=== PATIENT | male | born 1965 | race Caucasian/White ===

== ENCOUNTER 2023-09-27 10:49 | Emergency (ER) | payer OTHER ==
--- NOTE | 2023-09-27 11:23 | RAD REPORT ---
EXAM DESCRIPTION: [facility] Single View09/27/2023 11:12 am CLINICAL HISTORY: Congestion;Cough COMPARISON: No comparisons TECHNIQUE: Portable AP view of the chest. FINDINGS: The lungs are clear. No pneumothorax or effusion. The cardiomediastinal contours are unre markable. IMPRESSION: No acute cardiopulmonary process.
[2023-09-27 11:33] LABS: SARS-CoV-2 Antigen Rapid Res Negative (Negative)
--- NOTE | 2023-09-27 11:43 | ER ---
Nurse's Notes [facility] Name: Victor Hugo Ellis Age: 58 yrs Sex: Male : 1965 Arrival Date: 09/27/2023 Time: 10:49 Bed IW1 Private MD: Diagnosis: Acute upper respiratory infection, unspecified Presentation: 09/27 10:57 Chief complaint: Patient states: "Last night I started having cough, congestion, mb9 nausea, cough, sore throat, body aches, and chest pain from a previous fall 2 weeks ago.". Coronavirus screen: Vaccine status: Patient reports receiving the 2nd dose of the covid vaccine. Ebola Screen: No symptoms or risks identified at this time. Initial Sepsis Screen: Does the patient meet any 2 criteria? No. Patient's initial sepsis screen is negative. Does the patient have a suspected source of infection? No. Patient's initial sepsis screen is negative. Risk Assessment: Do you want to hurt yourself or someone else? Patient reports no desire to harm self or others. Onset of symptoms was September 27, 2023. 10:57 Method Of Arrival: Ambulatory mb9 10:57 Acuity: GLENYS 4 mb9 Triage Assessment: 10:59 General: Appears in no apparent distress. Behavior is calm, cooperative. Pain: mb9 Complains of pain in entire body. EENT: Throat is reddened. EENT: Reports nasal congestion. Neuro: Arriaza Agitation-Sedation Scale (RASS): 0 - Alert and Calm Level of Consciousness is awake, alert, obeys commands, Oriented to person, place, time, situation, Appropriate for age. Cardiovascular: Patient's skin is warm and dry. Respiratory: Reports cough that is Airway is patent Respiratory effort is even, unlabored, Respiratory pattern is regular, symmetrical. Respiratory: Reports. GI: Reports nausea. : No signs and/or symptoms were reported regarding the genitourinary system. Derm: Skin is pink, warm \\T\\ dry. Historical: - Allergies: 10:58 PENICILLINS; mb9 - Home Meds: 10:58 None [Active]; mb9 - PMHx: 10:58 None; mb9 - PSHx: 10:58 None; mb9 - Immunization history:: Adult Immunizations up to date. - Social history:: Smoking status: Patient denies any tobacco usage or history of. Screenin:39 [facility] ED Fall Risk Assessment (Adult) History of falling in the last 3 months, mb9 including since admission No falls in past 3 months (0 pts) Confusion or Disorientation No (0 pts) Intoxicated or Sedated No (0 pts) Impaired Gait No (0 pts) Mobility Assist Device Used No (0 pt) Altered Elimination No (0 pt) Score/Fall Risk Level 0 - 2 = Low Risk Oriented to surroundings, Maintained a safe environment, Educated pt \\T\\ family on fall prevention, incl call for assistance when getting out of bed. Abuse screen: Denies threats or abuse. Nutritional screening: No deficits noted. Tuberculosis screening: No symptoms or risk factors identified. Assessment: 11:11 Reassessment: see triage assessment. mb9 11:39 Reassessment: Patient appears in no apparent distress at this time. No changes from mb9 previously documented assessment. Patient and/or family updated on plan of care and expected duration. Pain level reassessed. Patient is alert, oriented x 3, equal unlabored respirations, skin warm/dry/pink. Vital Signs: 10:57 BP 145 / 90; Pulse 67; Resp 18; Temp 97.7; Pulse Ox 98% on R/A; Weight 104.33 kg; mb9 Height 6 ft. 3 in. ; Pain 4/10; 10:57 Body Mass Index 28.75 (104.33 kg, 190.5 cm) mb9 10:57 Pain Scale: Adult mb9 ED Course: 10:52 Patient arrived in ED. im 10:57 Hellen Jansen MD is Attending Physician. sp3 10:58 Triage completed. mb9 10:59 Arm band placed on. mb9 11:01 Strep Sent. la1 11:01 Flu Sent. la1 11:01 SARS RAPID Sent. la1 11:04 Strep Sent. mb9 11:04 Flu Sent. mb9 11:04 SARS RAPID Sent. mb9 11:11 Sharyn Figueredo RN is Primary Nurse. mb9 11:14 CXR XRAY In Process Unspecified. EDMS 11:39 Sharyn Figueredo RN is Primary Nurse. mb9 11:39 Patient has correct armband on for positive identification. Client placed on continuous mb9 cardiac and pulse oximetry monitoring. NIBP monitoring applied. 11:39 No provider procedures requiring assistance completed. Patient did not have IV access mb9 during this emergency room visit. Patient maintains SpO2 saturation greater than 95% on room air. Administered Medications: No medications were administered Medication: 11:11 VIS not applicable for this client. mb9 Outcome: 11:42 Discharge ordered by . sp3 11:45 Discharged to home ambulatory, mb9 11:45 Condition: stable 11:45 Discharge instructions given to patient, Instructed on discharge instructions, follow up and referral plans. Demonstrated understanding of instructions, follow-up care, 11:45 Patient left the ED. mb9 Signatures: Dispatcher [employer] EDMS Nichole Dillon Lee, DEPARTMENT EDITOR-C DEPARTMENT EDITOR-Cla1 Hellen Jansen MD MD sp3 Sharyn Figueredo RN RN mb9 Jo Brewster Corrections: (The following items were deleted from the chart) 11:31 11:13 20 gauge to left AC placed by Ana Plata with blood sent to the lab. bd ll1
--- NOTE | 2023-09-27 11:43 | EDPHYS ---
Physician Documentation [facility] Name: Victor Hugo Ellis Age: 58 yrs Sex: Male : 1965 Arrival Date: 09/27/2023 Time: 10:49 Bed IW1 Private MD: ED Physician Hellen Jansen HPI: 09/27 11:39 This 58 yrs old Male presents to ER via Ambulatory with complaints of Congestion, COVID sp3 Symptoms, Flu Symptoms. 11:39 58-year-old male with upper respiratory symptoms, sinus drainage, cough, congestion, sp3 body aches, subjective fever, who presents to the ED today after 3 days of symptoms. Patient states he is "here with a group and wanted to make sure he was not sick". He denies headache, neck pain, chest pain or shortness of breath, abdominal pain, vomiting, diarrhea, syncope, near syncope, rash, known sick contacts, any other signs or symptoms on ROS at this time. He does endorse nausea.. Historical: - Allergies: 10:58 PENICILLINS; mb9 - Home Meds: 10:58 None [Active]; mb9 - PMHx: 10:58 None; mb9 - PSHx: 10:58 None; mb9 - Immunization history:: Adult Immunizations up to date. - Social history:: Smoking status: Patient denies any tobacco usage or history of. ROS: 11:39 Constitutional: Negative for fever, chills, and weight loss, Eyes: Negative for injury, sp3 pain, redness, and discharge, ENT: Negative for injury, pain, and discharge, Neck: Negative for injury, pain, and swelling, Cardiovascular: Negative for chest pain, palpitations, and edema, Abdomen/GI: Negative for abdominal pain, nausea, vomiting, diarrhea, and constipation, Back: Negative for injury and pain, MS/Extremity: Negative for injury and deformity, Skin: Negative for injury, rash, and discoloration, Neuro: Negative for headache, weakness, numbness, tingling, and seizure, Psych: Negative for depression, anxiety, suicide ideation, homicidal ideation, and hallucinations, Allergy/Immunology: Negative for hives, rash, and allergies, Endocrine: Negative for neck swelling, polydipsia, polyuria, polyphagia, and marked weight changes, Hematologic/Lymphatic: Negative for swollen nodes, abnormal bleeding, and unusual bruising, 11:39 All other systems are negative, Exam: 11:40 Constitutional: This is a well developed, well nourished patient who is awake, alert, sp3 and in no acute distress. Head/Face: Normocephalic, atraumatic. Eyes: Pupils equal round and reactive to light, extra-ocular motions intact. Lids and lashes normal. Conjunctiva and sclera are non-icteric and not injected. Cornea within normal limits. Periorbital areas with no swelling, redness, or edema. ENT: Nares patent. No nasal discharge, no septal abnormalities noted. External auditory canals are clear. Oropharynx with no redness, swelling, or masses, exudates, or evidence of obstruction, uvula midline. Mucous membranes moist. Neck: Trachea midline, no thyromegaly or masses palpated, and no cervical lymphadenopathy. Supple, full range of motion without nuchal rigidity, or vertebral point tenderness. No Meningismus. Chest/axilla: Normal chest wall appearance and motion. Nontender with no deformity. No lesions are appreciated. Cardiovascular: Regular rate and rhythm with a normal S1 and S2. No gallops, murmurs, or rubs. Normal PMI, no JVD. No pulse deficits. Respiratory: Lungs have equal breath sounds bilaterally, clear to auscultation and percussion. No rales, rhonchi or wheezes noted. No increased work of breathing, no retractions or nasal flaring. Abdomen/GI: Soft, non-tender, with normal bowel sounds. No distension or tympany. No guarding or rebound. No evidence of tenderness throughout. Back: No spinal tenderness. No costovertebral tenderness. Full range of motion. Skin: Warm, dry with normal turgor. Normal color with no rashes, no lesions, and no evidence of cellulitis. MS/ Extremity: Pulses equal, no cyanosis. Neurovascular intact. Full, normal range of motion. Neuro: Awake and alert, GCS 15, oriented to person, place, time, and situation. Cranial nerves II-XII grossly intact. Motor strength 5/5 in all extremities. Sensory grossly intact. Cerebellar exam normal. Normal gait. Psych: Awake, alert, with orientation to person, place and time. Behavior, mood, and affect are within normal limits. Vital Signs: 10:57 BP 145 / 90; Pulse 67; Resp 18; Temp 97.7; Pulse Ox 98% on R/A; Weight 104.33 kg; mb9 Height 6 ft. 3 in. ; Pain 4/10; 10:57 Body Mass Index 28.75 (104.33 kg, 190.5 cm) mb9 10:57 Pain Scale: Adult mb9 MDM: 11:00 Patient medically screened. sp3 11:41 Data reviewed: vital signs, nurses notes, lab test result(s), radiologic studies. ED sp3 course: 58-year-old male with URI symptoms. Considering COVID-19, influenza, viral syndrome, pneumonia, sinusitis, among others. I am not highly suspicious for ACS, PE, TAD, or any other critical pathology including sepsis and shock. Swabs are all negative including strep, COVID, flu and chest x-ray is also normal. After antibiotics to cover potential sinusitis but patient declined and states she will just take Tylenol and personal supportive care. We will safely discharge patient home at this time.. 09/27 11:00 Order name: SARS RAPID; Complete Time: 11:35 sp3 09/27 11:00 Order name: Flu; Complete Time: 11:35 sp3 09/27 11:00 Order name: Strep; Complete Time: 11:35 sp3 09/27 11:37 Order name: Throat Culture EDOH 09/27 11:00 Order name: CXR XRAY; Complete Time: 11:28 sp3 Administered Medications: No medications were administered Disposition Summary: 09/27/23 11:42 Discharge Ordered Notes: Location: Home sp3 Condition: Stable sp3 Diagnosis - Acute upper respiratory infection, unspecified sp3 Followup: sp3 - With: Private Physician - When: Upon discharge from the Emergency Department - Reason: Continuance of care Discharge Instructions: - Discharge Summary Sheet sp3 - Upper Respiratory Infection, Adult sp3 Forms: - Medication Reconciliation Form sp3 - Thank You Letter sp3 - Antibiotic Education sp3 - Prescription Opioid Use sp3 - Patient Portal Instructions sp3 - Leadership Thank You Letter sp3 Signatures: Dispatcher [employer] Hellen Marvin MD MD sp3 Sharyn Figueredo RN RN mb9
[2023-09-27 12:01] VITALS: BP 145/90; TEMP 97.7; O2SAT 98
== END 2023-09-27 11:45 | disposition home or self-care (01) ==
LOC: ER 10:49
DX: J06.9 Acute upper respiratory infection, unspecified (principal); Z11.52 Encounter for screening for COVID-19; Z88.0 Allergy status to penicillin
CPT/HCPCS: 36415; 71045; 87070; 87081; 87804; 87811; 99284